=== PATIENT | female | born 1965 | race African-American/Black ===

== ENCOUNTER 2024-12-12 11:03 | Emergency (ER) | payer SELFPAY ==
[~2024-12-12] VITALS: Ht 162.6 cm; Wt 58.0 kg
[2024-12-12 11:13] VITALS: O2SAT 99
[2024-12-12] MEDS ORDERED: SULF1TAB48 MT (11:35)
[2024-12-12 12:11] VITALS: BP 184/99; PULSE 93; RESP 16; TEMP 36.9; O2SAT 99
== END 2024-12-12 12:18 | disposition home or self-care (01) ==
LOC: ER 11:28
DX: L72.3 Sebaceous cyst (principal)
CPT/HCPCS: 10060; 99283; Z7610